=== PATIENT | male | born 1980 | race Hispanic/Latino ===

== ENCOUNTER 2017-01-08 19:26 | Emergency (ER) | payer OTHER ==
[2017-01-08 19:52] VITALS: BP 136/87; PULSE 85; RESP 16; TEMP 99.1; O2SAT 99
--- NOTE | 2017-01-08 21:10 | ED PDOC ---
HPI: Back Time Seen by Provider: 01/08/17 20:03 Chief Complaint (Nursing): Rib Injury Chief Complaint (Provider): Rib Injury History Per: Patient History/Exam Limitations: no limitations Onset/Duration Of Symptoms: Days (x5) Current Symptoms Are (Timing): Still Present Additional Complaint(s): Giles is a 36 year old who presents to the ED complaining of a right rib injury which occurred last . Patient admits to drinking alcohol and cannot remember how he may have injured it. Pain was previously a 4, but worsened to a 7 causing the patient to present to the ED. Pain with movement and deep inspiration. States he is able to breathe. No shortness of breath. Denied abdominal pain and trouble urinating. PMD: Non [facility] Provider Past Medical History Reviewed: Historical Data, Nursing Documentation, Vital Signs Vital Signs: Last Vital Signs Temp 99.1 F 01/08/17 19:48 Pulse 85 01/08/17 19:48 Resp 16 01/08/17 19:48 BP 136/87 01/08/17 19:48 Pulse Ox 99 01/08/17 19:48 - Surgical History Surgical History: No Surg Hx - Family History Family History: States: Unknown Family Hx - Social History Current smoker - smoking cessation education provided: No Alcohol: Social Drugs: Denies - Immunization History Hx Tetanus Toxoid Vaccination: No (Not since childhood) - Allergies Allergies/Adverse Reactions: Allergies Allergy/AdvReac Type Severity Reaction Status Date / Time No Known Allergies Allergy Verified 01/08/17 19:46 Review of Systems ROS Statement: Except As Marked, All Systems Reviewed And Found Negative Respiratory: Negative for: Shortness of Breath Gastrointestinal: Negative for: Abdominal Pain Genitourinary Male: Negative for: Dysuria, Frequency, Incontinence Musculoskeletal: Positive for: Other (Right sided rib pain) Physical Exam - Reviewed Nursing Documentation Reviewed: Yes Vital Signs Reviewed: Yes - Physical Exam Appears: Positive for: Well, Non-toxic, No Acute Distress Head Exam: Positive for: ATRAUMATIC, NORMAL INSPECTION, NORMOCEPHALIC Skin: Positive for: Normal Color, Warm, Dry Eye Exam: Positive for: Normal appearance Neck: Positive for: Normal Cardiovascular/Chest: Positive for: Regular Rate, Rhythm, Other (Tenderness to right rib). Negative for: Murmur Respiratory: Positive for: Normal Breath Sounds. Negative for: Respiratory Distress Pulses-Radial (L): 2+ Pulses-Radial (R): 2+ Gastrointestinal/Abdominal: Positive for: Soft, Tenderness (Tenderness to the right upper quadrant) Extremity: Positive for: Normal ROM, Capillary Refill (<2 seconds). Negative for: Pedal Edema, Deformity Neurologic/Psych: Positive for: Alert, Oriented - ECG O2 Sat by Pulse Oximetry: 99 Medical Decision Making Medical Decision Making: Time: 21:07 Initial Plan: --CT of Chest, Abdomen and Pelvis w/o contrast Time: 21:59 CT Chest, abdomen, pelvis w/o contrast FINDINGS: CHEST: Lungs: The central airways are patent. No focal consolidation. 5 mm lateral basilar segment right lower lobe pulmonary nodule (axial image 78). Pleural space: No pneumothorax. No pleural effusion. Heart: Normal. No cardiomegaly. No significant pericardial effusion. Mediastinum: Feathery-appearing soft tissue in the anterior mediastinum, consistent with residual thymus. ABDOMEN: Liver: The liver is normal in appearance. Gallbladder and bile ducts: The gallbladder is normal. No calcified stones. No ductal dilation. Pancreas: The pancreas is normal. No ductal dilation. Spleen: The spleen is normal. Adrenals: The adrenal glands are normal. Kidneys and ureters: The kidneys are normal. The ureters are normal. No obstructing stones. No hydronephrosis. Stomach and bowel: Normal. No obstruction. No mucosal thickening. Appendix: A normal appendix is identified. PELVIS: Bladder: The bladder is normal. No stones. Reproductive: The prostate gland and seminal vesicles are normal. CHEST, ABDOMEN and PELVIS: Intraperitoneal space: Normal. No significant fluid collection. No free air. Bones/joints: The spine, sternum, ribs, pectoral girdles, sacroiliac joints, and hip joints are normal. No acute fracture. No dislocation. Soft tissues: Significantly asymmetric right gynecomastia. Tiny fat containing umbilical hernia within a 9 mm fascial defect. Vasculature: Normal. No aortic aneurysm. Lymph nodes: 7 mm superior segment right lower lobe intrafissural lymph node ( axial image 69). IMPRESSION: 1. No evidenced traumatic abnormality of the chest, abdomen, or pelvis. 2. Right lower lobe pulmonary nodule measuring 5 mm. For low-risk patients, no follow-up is necessary. For high-risk patients (smoking history or other known risk factors) an optional chest CT at 12 months could be performed. 3. Significant right gynecomastia which is asymmetric as no left-sided gynecomastia is present. Correlate with history, examination findings, and mammography as clinically indicated. Scribe Attestation: Documented by Chidi Stout, acting as a scribe for Fartun King PA-C Provider Scribe Attestation: All medical record entries made by the Scribe were at my direction and personally dictated by me. I have reviewed the chart and agree that the record accurately reflects my personal performance of the history, physical exam, medical decision making, and the department course for this patient. I have also personally directed, reviewed, and agree with the discharge instructions and disposition. Disposition - Clinical Impression Clinical Impression: Rib pain on right side - Patient ED Disposition Is Patient to be Admitted: No Counseled Patient/Family Regarding: Diagnosis, Need For Followup - Disposition Disposition: Routine/Home Disposition Time: 22:10 Condition: GOOD Instructions: Rib Contusion (ED) Forms: [employer] (Faroese)
--- NOTE | 2017-01-09 11:14 | CT ---
PROCEDURE: CT Chest, Abdomen and Pelvis without intravenous contrast HISTORY: right rib pain/ruq pain s/p trauma COMPARISON: None. TECHNIQUE: Radiation dose: Total exam DLP = 1204.96 mGy-cm. This CT exam was performed using one or more of the following dose reduction techniques: Automated exposure control, adjustment of the mA and/or kV according to patient size, and/or use of iterative reconstruction technique. FINDINGS: CT CHEST WITHOUT CONTRAST: LUNGS: Clear. No nodule, mass or consolidation. MEDIASTINUM: Unremarkable. Normal caliber aorta and pulmonary arterial trunk. Normal size heart. LYMPH NODES: Unremarkable. PLEURA: Unremarkable. No pneumothorax. No pleural fluid. BONES: Unremarkable. OTHER FINDINGS: None. CT ABDOMEN AND PELVIS: LIVER: Unremarkable. No gross lesion or ductal dilatation. GALLBLADDER AND BILE DUCTS: Unremarkable. PANCREAS: Unremarkable. No gross lesion or ductal dilatation. SPLEEN: Normal size. Smooth contour. Please note that evaluation for splenic laceration/hematoma is limited in the absence of intravenous contrast administration. ADRENALS: Unremarkable. No mass. KIDNEYS AND URETERS: Unremarkable. No hydronephrosis. No solid mass. VASCULATURE: Unremarkable. No aortic aneurysm. BOWEL: Unremarkable. No obstruction. No gross mural thickening. APPENDIX: Normal appendix. PERITONEUM: Unremarkable. No free fluid. No free air. LYMPH NODES: Unremarkable. No enlarged lymph nodes. BLADDER: Unremarkable. REPRODUCTIVE: Normal prostate BONES: No acute fracture. OTHER FINDINGS: None. IMPRESSION: No evidence of thoracic or abdominal/ pelvic visceral injury. Evaluation of the spleen is limited by the absence of intravenous contrast administration. No evidence of rib fracture.
== END 2017-01-08 22:15 | disposition home or self-care (01) ==
LOC: H.ER 19:26
DX: S20.219A Contusion of unspecified front wall of thorax, initial encounter (principal)